=== PATIENT | male | born 1995 | race Caucasian/White ===

== ENCOUNTER 2021-03-17 09:31 | Emergency (ER) | payer SELFPAY ==
[2021-03-17 09:46] VITALS: BP 129/75; PULSE 60; RESP 16; TEMP 36.3; O2SAT 99
--- NOTE | 2021-03-17 10:03 | ED.EYEPROB ---
HPI - Eye Problem General Chief complaint: Eye Problems Stated complaint: R eye redness and irritation Related Data Allergies Allergy/AdvReac Type Severity Reaction Status Date / Time fluoxetine [Prozac] Allergy Intermediate unknown Verified 03/06/21 08:11 Review of Systems Review of Systems: All systems reviewed & are unremarkable except as noted in HPI and below Constitutional: Constitutional: Reports no additional constitutional complaints Eyes: Eyes: Reports photophobia Comments: mild red and itchy right eye. ENT: Reports system reviewed and no additional complaints, except as documented Cardiovascular: Cardiovascular: Reports no additional cardiovascular complaints Respiratory: Respiratory: Reports no additional respiratory complaints Gastrointestinal: Gastrointestinal: Reports no additional gastrointestinal complaints Genitourinary: Genitourinary: Reports no additional male genitourinary complaints Musculoskeletal: Musculoskeletal: Reports no additional musculoskeletal complaints Integumentary/Breasts: Skin/Breast: Reports system reviewed and no additional complaints, except as docu Neurologic: Reports system reviewed and no additional complaints, except as documented Psychiatric: Psychiatric: Reports no additional psychiatric complaints Endocrine: Endocrine: Reports no additional endocrine complaints Hematologic/Lymphatic: Hematologic/Lymphatic: Reports no additional hematologic/lymphatic complaints Allergic/Immunologic: Allergic/Immunologic: Reports no additional allergic/immunologic complaints [facility] Social History Social History Smoking status: Never smoker Alcohol intake: never Substance use: never Substance use type: does not use Gender identity (if verbalized by the patient): Male Exam Const: General: no acute distress and alert Orientation/consciousness: patient oriented x3 HENMT: Head: normal to inspection Ears: TM's normal bilaterally General nose exam: Normal external nose present Eyes: Pupils: Equal, round and reactive pupils present EOM: EOMs intact bilaterally Other: mild scleral injection with no cornael abnormality and lids were wnl. vision: able to count fingers normally Neck: Neck: normal visual inspection and no lymphadenopathy Chest: Chest palpation & inspection: normal inspection of the chest Resp: Effort & Inspection: normal respiratory effort Auscultation: clear to auscultation bilaterally Cardio: Rate: regular rate Rhythm: regular rhythm GI: Auscultation: normal bowel sounds : Testes: Testes normal Back/Spine/Pelvis: Back: no CVA tenderness Skin: General skin exam: normal color Rashes: no rashes Neuro: General: patient oriented x3, moves all extremities and no focal motor deficits Extrem: General: normal to inspection Psych: Mental Status: mental status grossly normal Affect: normal affect Course Course Emergency Course: Pt for home with Rx of Erythromycin eye ointment and amoxil PRN blepharitis. Reevaluation(s) Reevaluation #1: Stable male. Date: 03/17/21 Time: 10:13 Vital Signs Vital signs: Vital Signs Temperature 36.3 C L 03/17/21 09:46 Pulse Rate 60 03/17/21 09:46 Respiratory Rate 16 03/17/21 09:46 Blood Pressure 129/75 03/17/21 09:46 Pulse Oximetry 99 03/17/21 09:46 Temperature 36.3 C L 03/17/21 09:46 Pulse Rate 60 03/17/21 09:46 Respiratory Rate 16 03/17/21 09:46 Blood Pressure 129/75 03/17/21 09:46 Pulse Oximetry 99 03/17/21 09:46 MDM - Eye Problem Differential Diagnosis Differential diagnosis: Likely corneal abrasion and conjunctivitis Medical Records Attestation: I reviewed the patient's medical records. Critical Care Time Critical Care Time Critical Care Time: No Total Critical Care Time: 0 Discharge Plan Discharge Clinical Impression: Acute viral conjunctivitis of right eye Patient Disposition: Home, Self-Ca
== END 2021-03-17 10:32 | disposition home or self-care (01) ==
PROVIDERS: Emergency Provider Emergency Medicine; PCP Nurse Practitioner Family
DX: H10.31 Unspecified acute conjunctivitis, right eye (principal)
CPT/HCPCS: 99283

== ENCOUNTER 2021-07-23 06:50 | Emergency (ER) | payer OTHER, SELFPAY ==
[2021-07-23 06:52] VITALS: BP 163/94; PULSE 75; RESP 18; TEMP 36.4; O2SAT 100
[2021-07-23 06:57] VITALS: BP 163/94; PULSE 75; RESP 18; TEMP 36.6; O2SAT 100
--- NOTE | 2021-07-23 07:33 | ED.BACK ---
HPI - Back Pain/Injury General Chief Complaint: Back Pain/Injury Stated Complaint: back pain Time Seen by Provider: 07/23/21 07:07 Source: patient Mode of arrival: ambulatory Limitations: no limitations History of Present Illness HPI Narrative: Patient is a 26-year-old male complaining of low back pain, 6 out of 10, aching, worse with bending and lifting started approximately a month ago. Patient states that he works at a [email or web address] company and does a lot of heavy lifting and bending. Patient denies any weakness, numbness, incontinence, urinary symptoms, fever or chills. Patient also states that he needs an excuse for work for the next couple days so he could rest his back. Related Data Allergies Allergy/AdvReac Type Severity Reaction Status Date / Time fluoxetine [Prozac] Allergy Intermediate unknown Verified 07/23/21 06:56 Review of Systems Review of Systems: All systems reviewed & are unremarkable except as noted in HPI and below Constitutional: Constitutional: Reports as per HPI Eyes: Eyes: Denies blurry vision, Denies change in vision and Denies loss of vision ENT: Denies dizziness, Denies ear discharge, Denies headache(s), Denies lip swelling, Denies epistaxis, Denies nasal congestion, Denies neck pain, Denies throat swelling and Denies tongue swelling Cardiovascular: Cardiovascular: Denies chest pain, Denies chest pain at rest, Denies chest pain with activity, Denies diaphoresis, Denies rapid heart rate, Denies edema, Denies irregular heart rhythm, Denies lightheadedness, Denies palpitations, Denies dyspnea and Denies dyspnea on exertion Respiratory: Respiratory: Denies chest congestion, Denies cough, Denies hemoptysis, Denies dyspnea and Denies dyspnea on exertion Gastrointestinal: Gastrointestinal: Denies abdominal pain, Denies melena, Denies hematochezia, Denies diarrhea, Denies nausea, Denies vomiting and Denies hematemesis Musculoskeletal: Musculoskeletal: Denies abnormal gait, Denies deformity, Denies joint swelling, Denies limited range of motion, Denies neck pain and Denies numbness Neurologic: Denies Abnormal speech present, Denies abnormal gait, Denies confusion, Denies dizziness, Denies headache(s), Denies focal weakness, Denies loss of vision, Denies numbness, Denies Other visual disturbances, Denies Sensory deficit (Neuro) and Denies weakness Psychiatric: Psychiatric: Denies confusion, Denies depression, Denies auditory hallucinations, Denies homicidal ideation and Denies suicidal ideation Endocrine: Endocrine: Denies cold intolerance, Denies excessive sweating, Denies fatigue, Denies heat intolerance and Denies palpitations Hematologic/Lymphatic: Hematologic/Lymphatic: Denies easy bleeding and Denies easy bruising Allergic/Immunologic: Allergic/Immunologic: Denies lip swelling, Denies throat swelling and Denies tongue swelling [facility] Social History Social History Smoking status: Never smoker Alcohol intake: never Substance use: never Substance use type: does not use Gender identity (if verbalized by the patient): Male Comments Past medical history: None Family history: Unknown Social history: Non-smoker no EtOH or drug use Exam Const: General: cooperative, healthy appearing, comfortable, no acute distress, well developed, alert and awake; No confusion Orientation/consciousness: oriented to person, oriented to place, oriented to time, patient oriented x3 and No confusion Limitations: no limitations HENMT: Head: normal to inspection, normocephalic and atraumatic Ears: hearing grossly normal bilaterally, TM normal on the right and TM normal on the left General nose exam: Normal external nose present, Normal nares present and No nasal discharge present Face and sinus: normal facial exam Mouth: Yes Normal oral and palatal mucosa present, Yes lip normal, Yes tongue normal and Yes oropharynx normal Throat: posterior oropharynx normal, tonsils n
== END 2021-07-23 07:46 | disposition home or self-care (01) ==
PROVIDERS: Emergency Provider Emergency Medicine; PCP Nurse Practitioner Family
DX: S39.012A Strain of muscle, fascia and tendon of lower back, initial encounter (principal); X50.0XXA Overexertion from strenuous movement or load, initial encounter
CPT/HCPCS: 99283

== ENCOUNTER 2022-05-27 12:57 | Emergency (ER) | payer SELFPAY ==
[2022-05-27 13:16] VITALS: BP 138/97; PULSE 74; RESP 16; TEMP 36.1; O2SAT 99
--- NOTE | 2022-05-27 13:19 | ED.GENADULT ---
HPI - General Adult General Chief complaint: Psychiatric Symptoms Stated complaint: DEPRESSION AND ANXIETY Time Seen by Provider: 05/27/22 13:13 History of Present Illness HPI narrative: Ba presented to the ER. He was concerned about his anxiety. He spends a lot of time worry and it is especially bad in crowds and social situations. He could not get into his office and he is about to run out of seroquel and venlafaxine. He denies SI and HI. Related Data Home Medications Medication Instructions Recorded Confirmed Seroquel 50 mg DAILY 05/27/22 05/27/22 hydroxyzine HCl 25 mg DAILY 05/27/22 05/27/22 venlafaxine 37.5 mg DAILY 05/27/22 05/27/22 Allergies Allergy/AdvReac Type Severity Reaction Status Date / Time fluoxetine [Prozac] Allergy Intermediate unknown Verified 09/05/21 08:12 Review of Systems Review of Systems: All systems reviewed & are unremarkable except as noted in HPI and below PMFSH Social History Social History Smoking status: Never smoker Alcohol intake: never Substance use: never Substance use type: does not use Gender identity (if verbalized by the patient): Male Exam Const: General: cooperative, healthy appearing, comfortable, no acute distress, well developed, alert and awake; No confusion Orientation/consciousness: oriented to person, oriented to place, oriented to time, patient oriented x3 and No confusion Limitations: no limitations HENMT: Head: normal to inspection, normocephalic and atraumatic Ears: hearing grossly normal bilaterally, TM normal on the right and TM normal on the left General nose exam: Normal external nose present, Normal nares present and No nasal discharge present Face and sinus: normal facial exam Mouth: Yes Normal oral and palatal mucosa present, Yes lip normal, Yes tongue normal and Yes oropharynx normal Throat: posterior oropharynx normal, tonsils normal and uvula midline Eyes: General: appearance normal, both eyes and all related structures Pupils: Equal, round and reactive pupils present EOM: EOMs intact bilaterally Neck: Neck: normal visual inspection, full ROM, no lymphadenopathy and no meningeal signs Chest: Chest palpation & inspection: normal inspection of the chest Resp: Effort & Inspection: normal respiratory effort, able to speak in complete sentences, no respiratory distress and not tachypneic Cardio: Rate: regular rate : General: Yes no CVA tenderness Back/Spine/Pelvis: Other: tenderness on palpation bilateral lumbar paraspinal area negative for vertebral tenderness Skin: General skin exam: normal color, no rashes or lesions noted, elasticity normal and turgor normal Neuro: General: oriented to person, oriented to place, oriented to time, patient oriented x3, tone normal, moves all extremities, Normal light touch and pain sensation, no meningeal signs, no focal motor deficits, CN's II-XI intact bilaterally and No confusion Cranial nerves: Yes Equal, round and reactive pupils present Speech: No Abnormal speech present Sensory Exam: No Sensory deficit (Neuro) Extrem: General: normal to inspection, full ROM and capillary refill normal Psych: Appearance: grossly normal and well kempt Mental Status: mental status grossly normal Speech and movement: Normal speech and movement present Affect: normal affect Attitude: cooperative Thought process: Normal thought process present Thought content: Yes Normal thought content present Insight: Good insight present (Psych) Judgement: Good judgement present (Psych) Course Vital Signs Vital signs: Vital Signs Temperature 96.9 F L 05/27/22 13:16 Pulse Rate 74 05/27/22 13:16 Respiratory Rate 16 05/27/22 13:16 Blood Pressure 138/97 H 05/27/22 13:16 Pulse Oximetry 99 05/27/22 13:16 Oxygen Delivery Room Air 05/27/22 13:16 Temperature 96.9 F L 05/27/22 13:16 Pulse Rate 74 05/27/22 13:16 Respiratory Rate 05/03
--- NOTE | 2022-05-27 13:23 | PC.NURSE ---
Per [facility], no meds have been filled for Pt. since Aug,. At that time pt received a 30 day supply of hydroxyzine 50mg, a 30 day supply of seroquel 50mg, and a 14 day supply of venlafaxine 37.5mg. ERP aware.
== END 2022-05-27 13:41 | disposition home or self-care (01) ==
PROVIDERS: Emergency Provider Family Medicine; PCP Nurse Practitioner Family
DX: F41.9 Anxiety disorder, unspecified (principal); F32.A Depression, unspecified
CPT/HCPCS: 99281

== ENCOUNTER 2022-06-04 13:20 | Outpatient (CLI) | payer SELFPAY ==
[2022-06-04 14:18] LABS: SARS-CoV-2 RNA PCR Negative (Negative)
== END 2022-06-04 13:21 | disposition home or self-care (01) ==
LOC: CHSLAB 13:23
PROVIDERS: PCP Family Medicine; Visit Provider Family Medicine
DX: Z20.822 Contact with and (suspected) exposure to COVID-19 (principal)
CPT/HCPCS: C9803; U0003; U0005

== ENCOUNTER 2022-11-25 13:05 | Emergency (ER) | payer OTHER, SELFPAY ==
--- NOTE | ~2022-11-25 | XR_ITS ---
EXAMINATION: XR foot LT min 3V DATE: 11/25/2022 13:40 INDICATION: Left foot third digit injury and pain. TECHNIQUE: 4 views of left foot were obtained. COMPARISON: None. FINDINGS: Bone alignment is normal. No fracture. Joint spaces are well maintained. IMPRESSION: 1. Normal left foot. Reviewed, dictated and finalized at location A. IMPRESSION: 1. Normal left foot.
[2022-11-25 13:07] VITALS: BP 128/82; PULSE 73; RESP 18; TEMP 36.9; O2SAT 98
--- NOTE | 2022-11-25 13:45 | ED.LOWEXIN ---
HPI - Extremity Injury (Lower) General Chief Complaint: Extremity Injury, Lower Stated Complaint: Toe pain History of Present Illness HPI Narrative: 27-year-old white male stubbed his right middle toe on a carton last night as he was walking to the bathroom. He reports pain in his middle toe. There is no pain in the foot itself, and no pain in the other toes. there is no numbness or tingling, no ankle or other extremity pain. Related Data Home Medications Medication Instructions Recorded Confirmed fluoxetine 20 mg tablet 20 mg PO BID 11/25/22 11/25/22 risperidone 1 mg tablet 1 mg PO DAILY 11/25/22 11/25/22 Allergies Allergy/AdvReac Type Severity Reaction Status Date / Time No Known Allergies Allergy Verified 11/25/22 13:31 Review of Systems Review of Systems: Patient has no other complaints going over the past few days. review of systems is negative [facility] Social History Social History Smoking status: Never smoker Alcohol intake: never Substance use: never Substance use type: does not use Gender identity (if verbalized by the patient): Male Exam Narrative: pleasant, good historian Const: General: healthy appearing, no acute distress and alert Orientation/consciousness: patient oriented x3 Limitations: no limitations HENMT: Head: normal to inspection Face/Nose/Sinus: Normal external nose present and Normal nares present Eyes: General: appearance normal, both eyes and all related structures Neck: Neck: normal visual inspection Resp: Effort & Inspection: normal respiratory effort Skin: General skin exam: normal color Neuro: General: patient oriented x3 and moves all extremities Extrem: General: normal to inspection Other: except on exam of the right foot, where there is tenderness of the right middle toe primarily distal phalanx and middle phalanx. There is reverse small 1 mm area of ecchymosis, and there is a slight ecchymotic blush of the dorsum of the toe. . Course Course Emergency Course: I reviewed the x-ray images and radiology reported there is no fracture. I discussed with the patient should should carroll tape andwear supportive shoe, keep it elevated at night, utilize Tylenol and or ibuprofen as needed for discomfort Vital Signs Vital signs: Vital Signs Temperature 36.9 C 11/25/22 13:07 Pulse Rate 73 11/25/22 13:07 Respiratory Rate 18 11/25/22 13:07 Blood Pressure 128/82 11/25/22 13:07 Pulse Oximetry 98 11/25/22 13:07 Oxygen Delivery Room Air 11/25/22 13:07 Temperature 36.9 C 11/25/22 13:07 Pulse Rate 73 11/25/22 13:07 Respiratory Rate 18 11/25/22 13:07 Blood Pressure 128/82 11/25/22 13:07 Pulse Oximetry 98 11/25/22 13:07 Oxygen Delivery Room Air 11/25/22 13:07 MDM - Extremity Injury (Lower) MDM Narrative Medical decision making narrative: differential diagnosis include fracture, sprain, contusion, and an x-ray is negative for fracture, will treat by carroll taping, more supportive shoe, elevating as needed, on ibuprofen as needed for discomfort and follow-up with his PCP in 1 week Differential Diagnosis Differential diagnosis: Likely fracture of toe and other Medical Records Medical records narrative: contusion of toe, toe sprain, fracture Discharge Plan Discharge Clinical Impression: Contusion of toe without damage to nail Patient Disposition: Home, Self-Care Condition: Stable Instructions: Antibiotic Form, Foot Contusion (ED) Additional Instructions: elevate as needed during the day and at night, wear supportive shoe, carroll tape the toe Prescriptions: No Action fluoxetine 20 mg tablet 20 mg PO BID risperidone 1 mg tablet 1 mg PO DAILY Follow-up/Referrals: UNKNOWN,DOCTOR [Non-Staff] - 1 Week (follow up with your pcp in 1 week) Time of Disposition: 14:05
[2022-11-25 14:20] VITALS: BP 119/72; PULSE 76; RESP 18; TEMP 36.4; O2SAT 98
--- NOTE | 2022-11-25 17:03 | PC.NURSE ---
On 11/25/22, the student, [ dasha lopez], provided care and completed [facility] documentation on this patient. I have reviewed the student's documentation and agree with the findings.
== END 2022-11-25 14:20 | disposition home or self-care (01) ==
PROVIDERS: Emergency Provider Emergency Medicine
DX: S90.121A Contusion of right lesser toe(s) without damage to nail, initial encounter (principal); W22.8XXA Striking against or struck by other objects, initial encounter
CPT/HCPCS: 73630; 99283

== ENCOUNTER 2024-01-12 08:55 | Emergency (ER) | payer OTHER, SELFPAY ==
--- NOTE | ~2024-01-12 | XR_ITS ---
EXAMINATION: XR chest 2V DATE: 01/12/2024 09:20 INDICATION: Fever. TECHNIQUE: Frontal and lateral views of the chest were obtained. COMPARISON: Chest 2 views 03/19/2019 FINDINGS: There is no pneumonia, pleural effusion, or pneumothorax. The heart size is normal. IMPRESSION: 1. No acute cardiopulmonary disease. Reviewed, dictated and finalized at location A.
--- NOTE | 2024-01-12 09:05 | ED.GENADULT ---
HPI - General Adult General Chief complaint: Fever Stated complaint: fever Time Seen by Provider: 01/12/24 08:57 History of Present Illness HPI narrative: The patient is a 28-year-old male with history of depression and PTSD and obesity. Two days ago, 01/10/2024, the patient had 3 watery diarrheal stools in the evening. The next day, he had a normal bowel movement but started to have a fever maximum 103.2? this morning, along with chills and diaphoresis, currently diaphoretic. He had 1 episode of emesis yesterday but no nausea currently and no emesis today. He feels tired weak and has a mild headache. No sick contacts. No rhinorrhea or nasal congestion or sore throat or cough or shortness of breath or neck pain or hematochezia melena or hematemesis. No urinary symptoms such as dysuria urgency frequency or hematuria. He comes for evaluation for further management. Related Data Home Medications Medication Instructions Recorded Confirmed fluoxetine 20 mg tablet 20 mg PO BID 11/25/22 01/12/24 risperidone 1 mg tablet 1 mg PO DAILY 11/25/22 01/12/24 Allergies Allergy/AdvReac Type Severity Reaction Status Date / Time No Known Allergies Allergy Verified 01/12/24 09:42 Review of Systems Review of Systems: All systems reviewed & are unremarkable except as noted in HPI and below Constitutional: Constitutional: Reports chills, Reports excessive sweating, Reports fatigue, Reports fever(s), Reports headache(s) and Reports weakness Eyes: Eyes: Denies change in vision and Denies photophobia ENT: Denies dysphagia, Denies dizziness, Denies lip swelling, Denies nasal congestion, Denies sore throat and Denies tongue swelling Cardiovascular: Cardiovascular: Denies chest pain, Denies syncope, Denies rapid heart rate and Denies dyspnea Respiratory: Respiratory: Denies cough, Denies dyspnea and Denies wheezing Gastrointestinal: Gastrointestinal: Denies abdominal pain, Denies constipation, Denies dysphagia, Reports diarrhea, Reports nausea and Reports vomiting Genitourinary: Genitourinary: Denies hematuria, Denies dysuria, Denies urinary frequency and Denies urinary urgency Musculoskeletal: Musculoskeletal: Denies back pain, Denies myalgias, Denies arthralgias, Denies joint swelling and Denies numbness Integumentary/Breasts: Skin/Breast: Denies pruritus, Denies erythema and Denies rash Neurologic: Denies confusion, Denies dizziness, Denies syncope, Denies focal weakness and Denies numbness Psychiatric: Psychiatric: Denies anxiety and Denies confusion Hematologic/Lymphatic: Hematologic/Lymphatic: Denies easy bleeding and Denies easy bruising Allergic/Immunologic: Allergic/Immunologic: Denies lip swelling, Denies tongue swelling and Denies wheezing PMFSH Social History Social History Smoking status: Never smoker Alcohol intake: never Substance use: never Substance use type: does not use Gender identity (if verbalized by the patient): Male Exam Const: General: healthy appearing, no acute distress, alert and well nourished Nutritional Appearance: well nourished Orientation/consciousness: patient oriented x3 Limitations: no limitations HENMT: Head: normal to inspection Ears: external ears normal Face/Nose/Sinus: normal facial exam Face and sinus: normal facial exam Mouth: Yes moist mucous membranes Throat: posterior oropharynx normal Eyes: Conjunctivae: conjunctivae normal Pupils: Equal, round and reactive pupils present EOM: EOMs intact bilaterally Neck: Neck: normal visual inspection and no meningeal signs Chest: Chest palpation & inspection: normal inspection of the chest and no tenderness Resp: Effort & Inspection: normal respiratory effort and not labored Auscultation: clear to auscultation bilaterally, no crackles, no rhonchi and no wheezes Cardio: Rate: tachycardic Rhythm: regular rhythm Heart sounds: no murmurs GI: Inspection: non-distended GI P
[2024-01-12 09:18] VITALS: TEMP 37.2
[2024-01-12 09:20] LABS: Basophils Absolute Auto 0.05 K/mm3 (0.00-0.10); Basophils Percent Auto 0.3 % (0.0-1.0); Hematocrit 41.9 % (40.0-54.0); Hemoglobin 14.3 g/dL (14.0-18.0); Immature Granulocyte Absolute 0.07 K/mm3 (0.00-0.00); Immature Granulocyte Percent A 0.4 % (0.0-0.0); Lymphocytes Absolute Auto 0.74 K/mm3 (1.10-4.50); Lymphocytes Percent Auto 4.5 % (18.0-42.0); Mean Corpuscular HGB Conc 34.1 g/dL (32-36); Mean Corpuscular Hemoglobin 28.5 pg (27.0-31.0); Mean Corpuscular Volume 83.5 fL (78.0-102.0); Mean Platelet Volume 9.7 fl (8.7-11.0); Monocytes Absolute Auto 0.94 K/mm3 (0.10-0.90); Monocytes Percent Auto 5.8 % (2.0-11.0); Neutrophils Absolute Auto 14.53 K/mm3 (1.70-7.20); Platelet Count Result 240 K/mm3 (150-420); Red Blood Count 5.02 M/mm3 (4.70-6.10); White Blood Count 16.3 K/mm3 (4.8-10.8)
[2024-01-12] MEDS: ONDANSETRON INJ 4 MG/2 ML VIAL IV PUSH (09:32)
[2024-01-12] MEDS: SODIUM CHLORIDE 0.9% IV 1,000 ML 999 ML IV CONT ×2 (09:32→09:33)
[2024-01-12] MEDS: KETOROLAC 30 MG/ML VIAL (*BKC) IV PUSH (09:32)
[2024-01-12] MEDS: ACETAMINOPHEN 500 MG TABLET 1000 MG PO (09:33)
[2024-01-12 09:37] VITALS: BP 136/81; PULSE 114; RESP 20; O2SAT 96
[2024-01-12 09:41] LABS: Alanine Aminotransferase 58 U/L (16-63); Albumin Level 4.1 g/dL (3.4-5.0); Alkaline Phosphatase 50 U/L (46-116); Anion Gap 14 mmol/L (4-12); Aspartate Amino Transferase 21 U/L (15-37); Bilirubin,Total 1.7 mg/dL (0.00-1.00); Blood Urea Nitrogen 13 mg/dL (7-18); Calcium 8.8 mg/dL (8.5-10.1); Carbon Dioxide 24 mmol/L (21-32); Chloride 99 mmol/L (98-108); Estimated CRCL calculation 95 ml/min; Estimated Glomerular Filt Rate > 60; Glucose 123 mg/dL (70-99); Osmolality Calculated 285 mOsm/kg (285-295); Potassium 3.6 mmol/L (3.5-5.1); Sodium 137 mmol/L (136-145); Total Protein 7.6 g/dL (6.4-8.2)
[2024-01-12 10:06] LABS: CRP 7.1 mg/dL (0.0-0.9); Magnesium 1.8 mg/dL (1.8-2.4)
[2024-01-12 10:14] LABS: Influenza A QL RT-PCR Negative (Negative); Influenza B QL RT-PCR Negative (Negative); RSV RNA, RT-PCR Negative (Negative); SARS-CoV-2 RNA PCR Negative (Negative)
[2024-01-12 10:23] LABS: Strep Group A RT-PCR DETECTED (Negative)
[2024-01-12 10:25] LABS: Erythrocyte Sedimentation Rate 4 mm/hr (0-15)
[2024-01-12] MEDS: cefTRIAXone 2 GM/NS 100 ML 2 GM/100 ML BAG IVPB (10:45)
[2024-01-12 11:08] LABS: Appearance Urine Clear (Clear); Bilirubin Urine Negative (Negative); Blood Urine Negative (Negative); Color Urine Yellow (Yellow); Glucose Urine UA Negative (Negative); Ketones Urine Negative (Negative); Leukocyte Esterase Ur Negative LEU/UL (Negative); Nitrate Urine Negative (Negative); Protein Urine Trace (Negative); Specific Grav Ur 1.015 (1.010-1.020)
[2024-01-12 11:14] LABS: Add Urine Microscopic? YES; Bacteria Urine 2+ /hpf; Mucus Urine Moderate /lpf; RBC Urine 0-2 /hpf (0-2); Squamous Epithelial Cell Urine Rare /hpf (Few); WBC Urine 0-3 /hpf (0-3)
[2024-01-12 11:18] LABS: Amphetamine Screen Urine Negative (Negative); Barbiturate Screen Urine Negative (Negative); Benzodiazepines Screen Urine Negative (Negative); Cannabinoid Screen Urine Negative (Negative); Cocaine Screen Urine Negative (Negative); Methadone Screen Urine Negative (Negative); Opiate Screen Urine Negative (Negative); Phencyclidine Screen Urine Negative (Negative)
[2024-01-12 11:32] VITALS: BP 131/69; PULSE 85; RESP 20; TEMP 36.9; O2SAT 97
== END 2024-01-12 11:34 | disposition home or self-care (01) ==
PROVIDERS: Emergency Provider Emergency Medicine
DX: J02.0 Streptococcal pharyngitis (principal); E66.9 Obesity, unspecified; Z68.39 Body mass index [BMI] 39.0-39.9, adult; F32.A Depression, unspecified; Z20.822 Contact with and (suspected) exposure to COVID-19
CPT/HCPCS: 36415; 71046; 80053; 80307; 81001; 83605; 83735; 85025; 85652; 86140; 87637; 87651; 96361; 96365; 96375; 99284; J0696; J1885; J2405; J7030

== ENCOUNTER 2024-10-11 12:26 | Emergency (ER) | payer BC, MEDICAID, SELFPAY ==
[2024-10-11 12:26] VITALS: O2SAT 98
--- NOTE | 2024-10-11 12:30 | PC.NURSE ---
Covid culture sent to lab
[2024-10-11 12:31] VITALS: BP 152/99; PULSE 100; RESP 18; TEMP 36.4; O2SAT 98
--- NOTE | 2024-10-11 12:36 | ED_ITS ---
HPI - URI/Sore Throat General Chief Complaint: Upper Respiratory Infection Stated Complaint: cold symptoms Time Seen by Provider: 10/11/24 12:29 Source: patient Mode of arrival: ambulatory Limitations: no limitations History of Present Illness HPI Narrative: 29 years old white male came to the ED by private car complaining of flu-like symptoms in the form of runny nose, congestion, coughing, headache, body aches, nausea, vomiting mucous started 4 days ago. most of his coworkers have similar symptoms. Related Data Home Medications ?Medication ?Instructions ?Recorded ?Confirmed ?Last Taken ?Type fluoxetine 20 mg tablet 20 mg PO BID 11/25/22 01/12/24 Unknown History risperidone 1 mg tablet 1 mg PO DAILY 11/25/22 01/12/24 Unknown History Allergies Allergy/AdvReac Type Severity Reaction Status Date / Time No Known Allergies Allergy Verified 10/11/24 12:36 Review of Systems Review of Systems: All systems reviewed & are unremarkable except as noted in HPI and below PMFSH Social History Social History Smoking status: Never smoker Alcohol intake: never Substance use: never Substance use type: does not use Gender identity (if verbalized by the patient): Male Exam Narrative: General appearance: Well-developed, well-nourished Skin: Normal color Head: Normocephalic, nontraumatic Eyes: Clear conjunctiva ENT: Oropharynx normal, ears normal, nose normal Neck: Supple, nontender Chest and respiratory: Airway patent, no respiratory distress, no accessory muscle use Heart: Regular rate/rhythm Abdomen: Soft, nontender, no organomegaly, quiet bowel sounds Musculoskeletal: Normal range of motion, nontender back Neurologic: Alert and oriented ?3, [employer] is normal as tested, no gross motor deficit Course Vital Signs Vital signs: Vital Signs Pulse Oximetry 98 10/11/24 12:26 Oxygen Delivery Room Air 10/11/24 12:26 Temperature 36.4 C 10/11/24 12:31 Pulse Rate 100 10/11/24 12:31 Respiratory Rate 18 10/11/24 12:31 Blood Pressure 152/99 H 10/11/24 12:31 Pulse Oximetry 98 10/11/24 12:31 Oxygen Delivery Room Air 10/11/24 12:31 MDM - URI/Sore Throat MDM Narrative Medical decision making narrative: patient came to the ED with upper respiratory viral infection like symptoms started 4-5 days ago Workup today negative for COVID flu RSV, patient probably have other viral infection causing his symptoms. Currently no fever, no chills, no nausea or vomiting or diarrhea. Treatment supportive measures. Of work today. Differential Diagnosis Differential diagnosis: Likely upper respiratory infection, viral infection and influenza Medical Records Attestation: I reviewed the patient's medical records. Lab Data Attestation: I reviewed the patient's lab results. Labs: Lab Results 10/11/24 Range/Units 12:28 Influenza A (RT-PCR) Negative (Negative) Influenza B (RT-PCR) Negative (Negative) RSV (RT-PCR) Negative (Negative) SARS-CoV-2 RNA (RT-PCR) Negative (Negative) Discharge Plan Discharge Clinical Impression: Acute upper respiratory infection Patient Disposition: Home, Self-Care Condition: Stable Instructions: Upper Respiratory Infection (ED) Additional Instructions: Return if symptoms are worsening , call your family physician for appointment, take Tylenol as as needed for aches and pain, continue home medications. Patient Language: Belgian Prescriptions: No Action fluoxetine 20 mg tablet 20 mg PO BID risperidone 1 mg tablet 1 mg PO DAILY amoxicillin-pot clavulanate 875-125 mg tablet 1 tablet PO Q12H Qty: 20 0RF Follow-up/Referrals: UNKNOWN,DOCTOR [Non-Staff] - Stand Alone Forms: Work/School Release IP
--- OUTSIDE RECORDS SUMMARY | 2024-10-11 12:42 | XMS_ITS ---
Author Organization Unknown Address [address] [place] [phone] Phone Care Team Providers [facility] Name Role Phone JOSE ANGEL LAWRENCE Attending Unavailable NO PCP Primary Unavailable Immunization Immunization Date Status Additional Notes Code Code System OPV 1995 Completed 02 CVX OPV 1995 Completed 02 CVX OPV 02/19/1997 Completed 02 CVX MMR 10/22/1996 Completed 03 CVX Hep B, adolescent or pediatric 1995 Completed 08 CVX Hep B, adolescent or pediatric 1995 Completed 08 CVX Hep B, adolescent or pediatric 02/19/1997 Completed 08 CVX DTP-Hib 1995 Completed 22 CVX DTP-Hib 1995 Completed 22 CVX DTP-Hib 02/18/1996 Completed 22 CVX DTP-Hib 02/19/1997 Completed 22 CVX COVID-19 vaccine, vector-nr, rS-Ad26, PF, 0.5 mL 01/04/2021 Completed 212 CVX Results COMPREHENSIVE METABOLIC PANE L - Collect Date/Time: 05/26/2024 09:09 [facility] ID: [id number] [place] [address], [phone] LOINC: 78530-8 Test Value Unit Reference Range Code Code System Flag FASTING YES BUN 14 mg/dL L=7 H=20 3094-0 LOINC CREATININE 1.00 mg/dL L=0.66 H=1.25 2160-0 LOINC GLUCOSE 95 mg/dL L=74 H=106 2345-7 LOINC SODIUM 138 mmol/L L=132 H=144 2951-2 LOINC POTASSIUM 4.1 mmol/L L=3.5 H=5.1 2823-3 LOINC CHLORIDE 102 mmol/L L=98 H=107 2075-0 LOINC CO2 24.0 mmol/L L=22.0 H=30.0 8-9 LOINC ANION GAP 16 L=10 H=20 46842-8 LOINC OSMOLALITY 286 mOs/kG L=280 H=296 86362-0 LOINC BUN/CREAT 14.0 3097-3 LOINC CALCIUM 9.3 mg/dL L=8.3 H=10.5 90941-8 LOINC AST 31 U/L L=15 H=46 1920-8 LOINC ALT 59 U/L L=9 H=72 1742-6 LOINC ALKALINE PHOS 51 U/L L=38 H=126 6768-6 LOINC TOTAL BILI 1.0 mg/dL L=0.2 H=1.3 1975-2 LOINC ALBUMIN 4.4 G/dL L=3.5 H=5.0 1751-7 LOINC TOTAL PROTEIN 7.1 g/L L=6.3 H=8.2 2885-2 LOINC A/G RATIO 1.6 05027-7 LOINC AGE 29 44611-5 LOINC eGFR NON-AFR 94 ml/min eGFR AFR AMER 114 ml/min CBC W/ DIFF - Collect Date/T aislinn: 05/26/2024 09:09 [facility] ID: [id number] [address] [place], [place], [phone] LOINC: 22163-1 Test Value Unit Reference Range Code Code System Flag WBC 6.9 10^3uL L=4.8 H=10.8 RBC 5.21 10^6uL L=4.60 H=6.20 HEMOGLOBIN 14.9 g/dL L=14.0 H=18.0 718-7 LOINC HEMATOCRIT 44.2 VOL% L=42.0 H=52.0 4544-3 LOINC MCV 84.8 fL L=80.0 H=94.0 MCH 28.6 pg L=27.0 H=32.0 MCHC 33.7 g/dL L=32.0 H=36.0 PLATELETS 254 10^3uL L=100 H=400 41528-9 LOINC RDW 12.9 % L=11.7 H=15.5 %GRAN 61.2 % L=40.0 H=70.0 87846-5 LOINC %LYMPH 30.1 % L=20.0 H=45.0 736-9 LOINC %MONO 7.1 % L=2.0 H=10.0 42399-5 LOINC %EOS 1.0 % L=0.0 H=6.0 713-8 LOINC %BASO 0.3 % L=0.0 H=3.0 706-2 LOINC #NEUT 4.2 10^3uL L=1.9 H=7.6 81352-7 LOINC #LYMPH 2.1 10^3uL L=0.9 H=4.9 28008-4 LOINC #MONO 0.5 10^3uL L=0.1 H=0.9 70297-3 LOINC #EOS 0.1 10^3uL L=0.0 H=0.6 712-0 LOINC #BASO 0.02 10^3uL L=0.00 H=0.10 45117-8 LOINC #IM GRANS 0.0 10^3uL L=0.0 H=7.0 05708-2 LOINC %IM GRANS 0.3 % L=0.0 H=5.0 75422-6 LOINC %NRB 0.0 L=0.0 H=0.2 10687-1 LOINC #NRB 0.000 L=0.000 H=0.012 22039-9 LOINC MANUAL DIFF NOT INDICATED RBC MORPH NOT INDICATED LIPID PANEL - Collect Date/T aislinn: 05/26/2024 09:09 [facility] ID: [id number] [address] [place], [place], [phone] LOINC: 38821-5 Test Value Unit Reference Range Code Code System Flag FASTING YES CHOLESTEROL 200 mg/dL L=0 H=200 3-3 LOINC TRIGLYCERIDE 119 mg/dL L=0 H=150 2571-8 LOINC HDL 34 mg/dL L=40 H=60 2085-9 LOINC L LDL 132 mg/dL 2088-09 LOINC Social History Type Status Start Date End Date Code Code Syst em Smoking History Unknown if ever smoked [id number] Sex Male Hospital Discharge Instructions Should you have any questions prior to discharge, please contact a member of your healthcare team. If you have left the hospital and have any questions, please contact your primary care physician. Reason For Referral No Data Found Plan of Treatment No Data Found Encounters Encounter Diagnosis Start Date Code Code Sys tem Other chcf (current) drug therapy 05/26/2024 SNOMED-CT Personal Care Team Section Performer Name Performer Role Active Date Inactive Da te
[2024-10-11 13:08] LABS: SARS-CoV-2 RNA PCR Negative (Negative)
[2024-10-11 13:09] LABS: Influenza A QL RT-PCR Negative (Negative); Influenza B QL RT-PCR Negative (Negative); RSV RNA, RT-PCR Negative (Negative)
--- OUTSIDE RECORDS SUMMARY | 2024-10-11 13:09 | XMS_ITS ---
Author Organization Unknown Address [address] [place] [phone] Phone Care Team Providers Care Pole Maker Name Role Phone JOSE ANGEL LAWRENCE Attending [...] PANE L - Collect Date/Time: 05/26/2024 09:09 [facility] [id number] [address] [place] [address], [phone] LOINC: 16394-1 Test Value Unit Reference Range Code Code [...] 8-9 LOINC ANION GAP 16 L=10 H=20 47814-0 LOINC OSMOLALITY 286 mOs/kG L=280 H=296 86789-1 LOINC BUN/CREAT 14.0 3097-3 LOINC CALCIUM 9.3 mg/dL L=8.3 H=10.5 41603-5 LOINC AST 31 U/L L=15 H=46 1920-8 LOINC ALT 59 U/L L=9 H=72 1742-6 LOINC ALKALINE PHOS 51 U/L L=38 H=126 6768-6 LOINC TOTAL BILI 1.0 mg/dL L=0.2 H=1.3 1975-2 LOINC ALBUMIN 4.4 G/dL L=3.5 H=5.0 1751-7 LOINC TOTAL PROTEIN 7.1 g/L L=6.3 H=8.2 2885-2 LOINC A/G RATIO 1.6 47251-6 LOINC AGE 29 59497-8 LOINC eGFR NON-AFR 94 ml/min eGFR AFR AMER 114 ml/min CBC W/ DIFF - Collect Date/T aislinn: 05/26/2024 09:09 [facility] [id number] [address] [place], [place], [phone] LOINC: 50568-0 Test Value Unit Reference Range Code Code System Flag WBC 6.9 10^3uL L=4.8 H=10.8 RBC 5.21 10^6uL L=4.60 H=6.20 HEMOGLOBIN 14.9 g/dL L=14.0 H=18.0 718-7 LOINC HEMATOCRIT 44.2 VOL% L=42.0 H=52.0 4544-3 LOINC MCV 84.8 fL L=80.0 H=94.0 MCH 28.6 pg L=27.0 H=32.0 MCHC 33.7 g/dL L=32.0 H=36.0 PLATELETS 254 10^3uL L=100 H=400 40849-7 LOINC RDW 12.9 % L=11.7 H=15.5 %GRAN 61.2 % L=40.0 H=70.0 31292-9 LOINC %LYMPH 30.1 % L=20.0 H=45.0 736-9 LOINC %MONO 7.1 % L=2.0 H=10.0 44882-0 LOINC %EOS 1.0 % L=0.0 H=6.0 713-8 LOINC %BASO 0.3 % L=0.0 H=3.0 706-2 LOINC #NEUT 4.2 10^3uL L=1.9 H=7.6 24523-4 LOINC #LYMPH 2.1 10^3uL L=0.9 H=4.9 81746-4 LOINC #MONO 0.5 10^3uL L=0.1 H=0.9 87146-1 LOINC #EOS 0.1 10^3uL L=0.0 H=0.6 712-0 LOINC #BASO 0.02 10^3uL L=0.00 H=0.10 98960-1 LOINC #IM GRANS 0.0 10^3uL L=0.0 H=7.0 55177-5 LOINC %IM GRANS 0.3 % L=0.0 H=5.0 46296-9 LOINC %NRB 0.0 L=0.0 H=0.2 72303-5 LOINC #NRB 0.000 L=0.000 H=0.012 62972-8 LOINC MANUAL DIFF NOT INDICATED RBC MORPH NOT INDICATED LIPID PANEL - Collect Date/T aislinn: 05/26/2024 09:09 [facility] [id number] [address] [place], [place], [id number] LOINC: 14826-1 Test Value Unit Reference Range Code Code System Flag FASTING YES CHOLESTEROL 200 mg/dL L=0 H=200 3-3 LOINC TRIGLYCERIDE 119 mg/dL L=0 H=150 1-8 LOINC HDL 34 mg/dL L=40 H=60 2085-05 LOINC L LDL 132 mg/dL 2088-09 LOINC Social History Type Status Start Date End Date Code Code Syst em Smoking History Unknown if ever smoked [id number] Sex Male Hospital Discharge Instructions Should you have any questions prior to discharge, please contact a member of your healthcare team. If you have left the hospital and have any questions, please contact your primary care physician. Reason For Referral No Data Found Plan of Treatment No Data Found Encounters Encounter Diagnosis Start Date Code Code Sys tem Other fdc (current) drug therapy 05/26/2024 SNOMED-CT Personal Care Team Section Performer Name Performer Role Active Date Inactive Da te
[2024-10-11 13:56] VITALS: BP 139/92; PULSE 98; RESP 16; TEMP 36.6; O2SAT 97
== END 2024-10-11 13:56 | disposition home or self-care (01) ==
PROVIDERS: Emergency Provider Emergency Medicine
DX: J06.9 Acute upper respiratory infection, unspecified (principal); Z20.822 Contact with and (suspected) exposure to COVID-19
CPT/HCPCS: 87637; 99283